=== PATIENT | male | born 1980 | race Caucasian/White ===

== ENCOUNTER 2017-11-08 18:53 | Emergency (ER) | payer OTHER ==
[2017-11-08] MEDS ORDERED: LORazepam 1 MG TAB PO ONE (19:41)
[2017-11-08] MEDS ORDERED: predniSONE 20 MG TAB PO ONE (19:53)
--- NOTE | 2017-11-08 19:56 | EDPHY ---
H & P Stated Complaint: high BP Time Seen by Provider: 11/08/17 19:32 HPI/ROS: CHIEF COMPLAINT: High blood pressure HISTORY OF PRESENT ILLNESS: Patient is a 37-year-old man who comes to the emergency depart with his mom and girlfriend complaining of elevated blood pressure 130/80 today up to 160/80 just prior to arrival. He denies chest pain or headache or confusion or trouble breathing. He was seen earlier today at the Urgent Care complaining of tinnitus for the last 5 months. He states that his blood pressure is usually normal. He also states that he recently switched to the generic form of lorazepam which she takes twice daily for anxiety it he thinks that maybe it is not working as well. He states that this does seem to be anxiety related. REVIEW OF SYSTEMS: Constitutional: denies: chills, fever, recent illness, recent injury EENTM: See HPI denies: blurred vision, double vision, nose congestion Respiratory: denies: cough, shortness of breath Cardiac: denies: chest pain, irregular heart rate, lightheadedness, palpitations Gastrointestinal/Abdominal: denies: abdominal pain, diarrhea, nausea, vomiting, blood streaked stools Genitourinary: denies: dysuria, frequency, hematuria, pain Musculoskeletal: denies: joint pain, muscle pain Skin: denies: lesions, rash, jaundice, bruising Neurological: denies: headache, numbness, paresthesia, tingling, dizziness, weakness Hematologic/Lymphatic: denies: blood clots, easy bleeding, easy bruising Immunologic/allergic: denies: HIV/AIDS, transplant EXAM: GENERAL: Well-appearing, well-nourished and in no acute distress. HEAD: Atraumatic, normocephalic. EYES: Pupils equal round and reactive to light, extraocular movements intact, sclera anicteric, conjunctiva are normal. ENT: TMs normal, nares patent, oropharynx clear without exudates. Moist mucous membranes. NECK: Normal range of motion, supple without lymphadenopathy or JVD. LUNGS: Breath sounds clear to auscultation bilaterally and equal. No wheezes rales or rhonchi. HEART: Regular rate and rhythm without murmurs, rubs or gallops. ABDOMEN: Soft, nontender, normoactive bowel sounds. No guarding, no rebound. No masses appreciated. BACK: No CVA tenderness, no spinal tenderness, step-offs or deformities EXTREMITIES: Normal range of motion, no pitting or edema. No clubbing or cyanosis. NEUROLOGICAL: Cranial nerves II through XII grossly intact. Normal speech, normal gait. 5/5 strength, normal movement in all extremities, normal sensation PSYCH: Normal mood, normal affect. SKIN: Warm, dry, normal turgor, no visible rashes or lesions. Source: Patient, Family Exam Limitations: No limitations - Personal History Current Tetanus/Diphtheria Vaccine: Unsure Current Tetanus Diphtheria and Acellular Pertussis (TDAP): Unsure - Medical/Surgical History Hx Asthma: No Hx Chronic Respiratory Disease: No Hx Diabetes: No Hx Cardiac Disease: No Hx Renal Disease: No Hx Cirrhosis: No Hx Alcoholism: No Hx HIV/AIDS: No Hx Splenectomy or Spleen Trauma: No Other PMH: anxiety depression - Family History Significant Family History: No pertinent family hx - Social History Smoking Status: Never smoked Alcohol Use: Sober Drug Use: None Constitutional: Initial Vital Signs Temperature (C) 36.6 C 11/08/17 19:06 Heart Rate 101 H 11/08/17 19:06 Respiratory Rate 16 11/08/17 19:06 Blood Pressure 157/101 H 11/08/17 19:06 O2 Sat (%) 95 11/08/17 19:06 O2 Delivery Mode Room Air Allergies/Adverse Reactions: Penicillins Allergy (Verified 11/08/17 19:08) Home Medications: Medication Instructions Recorded methylPREDNISolone [Medrol Dose 1 each PO AD #1 ea 11/08/17 Julien] Medical Decision Making - Diagnostics EKG Interpretation: An EKG obtained and was read and documented in trace view. Please see trace view for full reading and report. Sinus rhythm, no acute ischemic changes ED Course/Re-evaluation: We discussed blood pressure management. His blood pressure in the ER is essentially normal. He was asymptomatic. I did recommend we obtain an EKG and he agrees. He would prefer to take his own Ativan for anxiety control rather than ours. Also we discussed his chronic tinnitus. He has not had hearing loss. He has not had a fever. He has not felt vertiginous. He has been referred to ENT by his primary is office. I agreed with this recommendation also recommend we start him on a short burst of steroids. We discussed the fact that this may worsen his depression or anxiety temporarily and that if it does to stop taking it. I also recommended that he keep a journal of his blood pressures 3 times a day and follow up with Dr. Rodriguez about further blood pressure control recommendations. Differential Diagnosis: Partial list of the Differential diagnosis considered include but were not limited to; hypertension, anxiety, Meniere's disease and although unlikely based on the history and physical exam, I also considered substance abuse, acute coronary disease, dissection. I discussed these differential diagnoses and the plan with the patient as well as the usual and expected course. The patient understands that the diagnosis is provisional and that in medicine we are not always correct and that further workup is often warranted. Usual and customary warnings were given. All of the patient's questions were answered. The patient was instructed to return to the emergency department should the symptoms at all worsen or return, otherwise to followup with the physician as we discussed. - Data Points Medications Given: Discontinued Medications Lorazepam (Ativan) 2 mg PO EDNOW ONE Stop: 11/08/17 19:42 Last Admin: 11/08/17 20:37 Dose: Not Given Prednisone (Prednisone) 60 mg PO EDNOW ONE Stop: 11/08/17 19:54 Last Admin: 11/08/17 20:37 Dose: Not Given Departure - Departure Disposition: Home, Routine, Self-Care Clinical Impression: Tinnitus of both ears, Anxiety about health Hypertension Qualifiers: Hypertension type: unspecified Qualified Code(s): I10 - Essential (primary) hypertension Condition: Fair Instructions: Hypertension (ED), Tinnitus (ED), Anxiolysis in Adults (ED) Referrals: FILI LE NP [Primary Care Provider] - As per Instructions ENE RODRIGUEZ [Medical Doctor] - 3-4 days, if not improved Thor Cedeño MD [Medical Doctor] - 5-7 days, call for appt. Prescriptions: methylPREDNISolone [Medrol Dose Julien] 1 each PO AD #1 ea
--- NOTE | 2017-11-08 20:00 | CPEKG ---
Heart Rate: 87 RR Interval: 690 P-R Interval: 128 QRSD Interval: 96 QT Interval: 352 QTC Interval: 424 P [place]: 28 QRS [place]: 85 T Wave [place]: 7 EKG Severity - NORMAL ECG - EKG Impression: SINUS RHYTHM Electronically Signed By: Festus Collier 08-Nov-2017 20:00:10
[2017-11-08 20:25] VITALS: BP 145/104
== END 2017-11-08 20:37 | disposition home or self-care (01) ==
DX: I10 Essential (primary) hypertension (principal); H93.13 Tinnitus, bilateral; F41.9 Anxiety disorder, unspecified
CPT/HCPCS: J7512